=== PATIENT | male | born 1935 | race Hispanic/Latino ===

== ENCOUNTER 2022-08-07 08:17 | Emergency (ER) | payer MEDICARE ==
[~2022-08-07] VITALS: Ht 167.6 cm; Wt 83.9 kg
[2022-08-07] MEDS ORDERED: ZYRTEC10 M3 PO (08:30)
[2022-08-07] MEDS ORDERED: MUCINEX DM ER1 EACH PO (08:30)
== END 2022-08-07 08:34 | disposition home or self-care (01) ==
LOC: ER 08:22
DX: R05.9 Cough, unspecified (principal); U07.1 COVID-19; I10 Essential (primary) hypertension; E78.5 Hyperlipidemia, unspecified
CPT/HCPCS: 99283